=== PATIENT | male | born 1980 | race Caucasian/White ===

== ENCOUNTER 2018-06-06 09:46 | Day surgery (SDC) | payer OTHER ==
[2018-05-31 11:19] VITALS: BMI 43.9
[2018-06-06] MEDS ORDERED: PROPOFOL 20 ML ONE ×2 (10:29)
[2018-06-06 12:57] VITALS: TEMP 98.1
[2018-06-06 13:48] VITALS: BP 130/77; PULSE 77
--- NOTE | 2018-06-08 12:12 | PATH ---
Surgical Pathology Report Patient Name: LEONID VILLAFANA [facility]. Rec. #: [id number] /Age/Gender: 1980 (Age: 37) / M Account: [id number] Location: [facility] AMBULATORY Taken: 06/06/2018 Received: 06/06/2018 Reported: 06/08/2018 Physicians: Dorie Cotton M.D. Specimen(s) Received A: DUODENUM B: ANTRUM C: GE JUNCTION Clinical History Abdominal pain r/o celiac, r/o Wetzel's, gastritis Final Diagnosis A. DUODENUM, BIOPSY: DUODENAL MUCOSA WITH NO PATHOLOGIC FINDINGS. B. ANTRUM, BIOPSY: SEVERE CHRONIC ACTIVE GASTRITIS. IMMUNOSTAIN SHOWS NUMEROUS H. PYLORI ORGANISMS. C. GE JUNCTION, BIOPSY: ESOPHAGOGASTRIC JUNCTIONAL (SQUAMOCOLUMNAR) MUCOSA SHOWING MODERATE ACUTE AND CHRONIC INFLAMMATION; H. PYLORI ORGANISMS ARE IDENTIFIED. NEGATIVE FOR INTESTINAL METAPLASIA. Electronically Signed Lizz Lee M.D. Gross Description A. received in formalin, labeled "duodenum" are two pieces of dickey tissue each up to 0.4 cm in greatest dimension. Entirely submitted one cassette. B. received in formalin, labeled "antrum" and two pieces of dickey tissue measuring 0.2 and 0.4 cm in greatest dimension. Entirely submitted one cassette. C. stage in formalin, labeled "GE junction" is one piece of dickey tissue measuring 0.3 cm in greatest dimension. Entirely submitted one cassette. ebram/06/06/2018
== END 2018-06-06 13:00 | disposition home or self-care (01) ==
LOC: FASU-ENDO 09:46
PROVIDERS: ATTEND Internal Medicine Gastroenterology
PROC: 0DB98ZX Excision of Duodenum, Via Natural or Artificial Opening Endoscopic, Diagnostic (ICD-10-PCS; principal; 2018-06-06 12:13)
PROC: 0DB68ZX Excision of Stomach, Via Natural or Artificial Opening Endoscopic, Diagnostic (ICD-10-PCS; 2018-06-06 12:13)
DX: K29.50 Unspecified chronic gastritis without bleeding (principal); K20.9 Esophagitis, unspecified; B96.81 Helicobacter pylori [H. pylori] as the cause of diseases classified elsewhere; R13.10 Dysphagia, unspecified; R10.9 Unspecified abdominal pain
CPT/HCPCS: 82962; 88305-TC; 88342-TC